=== PATIENT | male | born 1955 | race Caucasian/White ===

== ENCOUNTER 2017-02-20 09:25 | Emergency (ER) | payer MEDICAID ==
[~2017-02-20] VITALS: Ht 188 cm; Wt 83.9 kg
[2017-02-20 13:21] VITALS: BP 138/84
== END 2017-02-20 13:52 | disposition home or self-care (01) ==
LOC: ER 09:25
DX: E11.9 Type 2 diabetes mellitus without complications (principal); Z76.0 Encounter for issue of repeat prescription; Z79.4 Long term (current) use of insulin
CPT/HCPCS: 71020